=== PATIENT | male | born 1965 | race African-American/Black ===

== ENCOUNTER 2019-12-09 18:11 | Emergency (ER) | payer OTHER, SELFPAY ==
[2019-12-09] MEDS ORDERED: Adacel (T-DAP) 0.5 ML SYRINGE ONE (18:32)
--- NOTE | 2019-12-09 19:02 | CT ---
CT BRAIN WITHOUT CONTRAST: History: Fall, head injury. Comparison: None FINDINGS: No acute hemorrhage or infarct. No midline shift of mass effect. Senile calcifications of the right b maury ganglia. The calvarium is intact. Paranasal sinuses and mastoids are clear. IMPRESSION: No acute intracranial abnormality. POS: HOME
--- NOTE | 2019-12-09 19:04 | CT ---
CT CERVICAL SPINE WITHOUT CONTRAST: History: Fall. Pain. Comparison: None FINDINGS: Motion artifact through the upper thoracic spine. There is a high grade degenerative disc space disea se at C4-5 and C5-6 with moderate degenerative disc disease at C2-3 and C3-4. The occipital condyles are intact. The odontoid process is intact. No acute traumatic facet joint wid ening. Motion artifact of the mandible. Visualized upper ribs are intact given the limitation of motion. No apical pneumothorax. Spinus processes are intact. Paraspinal soft tissues are normal. IMPRESSION: No acute fracture or malalignment given the limitations of motion. POS: HOME
== END 2019-12-09 19:32 ==
LOC: NAV ERS 18:11
DX: S01.112A Laceration without foreign body of left eyelid and periocular area, initial encounter (principal); F20.9 Schizophrenia, unspecified; W01.198A Fall on same level from slipping, tripping and stumbling with subsequent striking against other object, initial encounter
CPT/HCPCS: 12011; 70450; 72125; 90471; 90715

== ENCOUNTER 2022-12-08 20:16 | Outpatient (CLI) | payer SELFPAY | END 2022-12-08 20:17 | disposition home or self-care (01) | LOC: NAV RAD 20:16 | PROVIDERS: ATTEND Family Medicine | DX: M54.50 Low back pain, unspecified (principal); M47.816 Spondylosis without myelopathy or radiculopathy, lumbar region | CPT/HCPCS: 72100 ==

== ENCOUNTER 2023-06-28 12:01 | Emergency (ER) | payer SELFPAY ==
[2023-06-28 13:13] LABS: Bilirubin Negative (Negative); Blood, Urine Negative (Negative); Clarity Clear (Clear); Glucose, Urine (Dipstick) Negative (Negative); Ketone, Urine Negative (Negative); Leukocyte Negative (Negative); Nitrite Negative (Negative); Protein, Urine (Dipstick) Negative (Neg-Trace)
[2023-06-28 13:14] LABS: Urine Culture Reflex No No
[2023-06-28 13:17] LABS: Anion Gap 12 mmol/L (10-20); BUN (Urea Nitrogen) 11 mg/dL (8.4-25.7); Calc. Creatinine Clearance 0 mL/min (70-130); Calcium 9.1 mg/dL (7.8-10.44); Carbon Dioxide 27 mmol/L (22-29); Chloride 106 mmol/L (98-107); Estimated GFR 60; Glucose 95 mg/dL (70-105); Sodium 141 mmol/L (136-145)
[2023-06-28 13:34] LABS: CAUTI Indications for Culture Alt mental st,lethar; WBC/HPF None Seen HPF (0-3)
[2023-06-28 13:44] LABS: #Basophils 0.1 thou/uL (0.0-0.2); #Eosinphils 0.2 thou/uL (0.0-0.7); #Lymphocytes 1.6 thou/uL (1.20-3.40); #Monocytes 0.5 thou/uL (0.11-0.59); #Neutrophils 2.5 thou/uL (1.40-6.50); %Eosinophils 3.6 % (0.0-10.0); %Lymphocytes 32.7 % (21.0-51.0); %Monocytes 10.6 % (0.0-10.0); %Neutrophils 51.1 % (42.0-75.0); Hematocrit 44.4 % (42.0-52.0); Hemoglobin 14.3 g/dL (14.0-18.0); Mean Corpuscular HGB CONC 32.2 g/dL (32.0-36.0); Mean Corpuscular Hemoglobin 28.4 pg (27.0-31.0); Mean Corpuscular Volume 88.2 fl (78.0-98.0); Mean Platelet Volume 11.2 fL (7.4-10.4); Platelet Count 148 10x3/uL (130-400); RBC Distribution Width 12.2 % (11.5-14.5); Red Blood Cell (RBC) Count 5.03 mill/uL (4.70-6.10); White Blood Cell (WBC) Count 4.9 10x3/uL (4.8-10.8)
== END 2023-06-28 14:10 | disposition home or self-care (01) ==
LOC: NAV ERS 12:01
DX: R42 Dizziness and giddiness (principal); I10 Essential (primary) hypertension; E78.00 Pure hypercholesterolemia, unspecified; Z79.899 Other long term (current) drug therapy
CPT/HCPCS: 80048; 81001; 84443; 85025; 99284